=== PATIENT | female | born 1970 | race Caucasian/White ===

== ENCOUNTER → 2023-10-04 | Outpatient (CLI) | payer OTHER ==
[~2023-10-04] MED LIST: AMOXICILLIN 8751 TAB PO; NO HOME MEDICATIONS; PERCOCET 325 MG1 TA2 PO; PREDNISONE20 MG PO; PRINZIDE 12.5 M1 TA1 PO
== END ==
LOC: COL.RAD 08:43
DX: D25.9 Leiomyoma of uterus, unspecified (principal)